=== PATIENT | male | born 2000 | race Caucasian/White ===

== ENCOUNTER 2022-11-15 07:35 | Emergency (ER) | payer OTHER, MEDICAID, SELFPAY ==
--- NOTE | ~2022-11-15 | XR_ITS ---
EXAMINATION: XR chest 2V DATE: 11/15/2022 08:23 INDICATION: Seizure. TECHNIQUE: Frontal and lateral views of the chest were obtained on 3 radiographs. COMPARISON: None. FINDINGS: The chest demonstrates clear lungs without pneumonia, pleural effusion, or pneumothorax. Th e heart size is normal. There is mild pectus excavatum. IMPRESSION: 1. No acute cardiopulmonary disease. Reviewed, dictated and finalized at location A.
--- NOTE | ~2022-11-15 | CT_ITS ---
EXAMINATION: CT brain wo con INDICATION: Seizure COMPARISON: None TECHNIQUE: Standard unenhanced head CT. The dose-length product (DLP) was 605.33 mGy-cm. The mA was a djusted according to patient size. Iterative reconstruction technique was employed. FINDINGS: There is no intracranial hemorrhage, acute infarction, or abnormal mass lesion. The ventric les are normal. There is no abnormal mass effect or midline shift. The hernandez-white matter differentiat ion is normal. The basal cisterns are patent. The orbits are normal. There is mild mucosal thickening of the paranasal sinuses. IMPRESSION: 1. No acute intracranial abnormality. Reviewed, dictated and finalized at location B.
--- NOTE | ~2022-11-15 | XR_ITS ---
EXAMINATION: XR scapula RT DATE: 11/15/2022 08:23 INDICATION: Right scapular injury. TECHNIQUE: 2 views of right scapula were obtained. COMPARISON: None. FINDINGS: Bone alignment is normal. No fracture. Joint spaces are well maintained. IMPRESSION: 1. Normal right scapula. Reviewed, dictated and finalized at location A. IMPRESSION: 1. Normal right scapula.
[2022-11-15 07:37] VITALS: BP 125/68; PULSE 74; RESP 18; TEMP 36.6; O2SAT 98
[2022-11-15 07:42] VITALS: PULSE 72
--- NOTE | 2022-11-15 07:51 | ECG_ITS ---
Measurements Intervals [place] Rate: 69 P: 37 VA: 128 QRS: 32 QRSD: 111 T: 68 QT: 387 QTc: 417 Interpretive Statements SINUS RHYTHM POSSIBLE RIGHT VENTRICULAR CONDUCTION DELAY [RSR (QR) IN V1/V2] NO PREVIOUS ECG AVAILABLE FOR COMPARISON Electronically Signed On 11-15-2022 9:46:56 CDT by Mandie Ramos M.D.
[2022-11-15 08:23] LABS: Basophils Percent Auto 0.4 % (0.2-1.2); Eosinophils Percent Auto 0.6 % (0-4.4); Hematocrit 44.3 % (42.0-52.0); Hemoglobin 14.5 g/dL (14.0-18.0); Immature Granulocyte Absolute 0.05 K/mm3 (0.00-0.031); Immature Granulocyte Percent A 0.7 % (0-0.5); Lymphocytes Absolute Auto 2.05 K/mm3 (0.9-3.2); Lymphocytes Percent Auto 28.3 % (18.3-44.2); Mean Corpuscular HGB Conc 32.7 g/dl (32-36); Mean Corpuscular Hemoglobin 32.1 pg (26-34); Mean Platelet Volume 8.8 fl (7.4-10.4); Monocytes Absolute Auto 0.5 K/mm3 (0.1-0.6); Monocytes Percent Auto 6.9 % (2.6-8.5); Neutrophils Absolute Auto 4.6 K/mm3 (1.3-6.7); Neutrophils Percent Auto 63.1 % (45.5-73.1); Platelet Count Result 239 k/mm3 (150-375); Red Blood Count 4.52 M/mm3 (4.6-6.20); Red Cell Distribution Width 11.8 % (11.5-14.5); White Blood Count 7.2 K/mm3 (4.5-10.0)
[2022-11-15 08:29] LABS: Ethanol < 10 mg/dL (<10)
[2022-11-15 08:33] LABS: Barbiturate Screen Urine Negative (Negative)
[2022-11-15 08:35] LABS: Appearance Urine Clear (Clear); Bacteria Urine None Seen /hpf; Bilirubin Urine Negative (Negative); Blood Urine Negative (Negative); Color Urine Yellow (Yellow); Glucose Urine UA Negative (Negative); Ketones Urine Trace mg/dL (Negative); Leukocyte Esterase Ur Negative LEU/UL (Negative); Need Manual Microscopic Reviewed; Nitrate Urine Negative (Negative); Non Pathogenic Casts 0-2; Protein Urine 1+ mg/dL (Negative); RBC Urine 0-2 /hpf (0-2); Specific Grav Ur 1.016 (1.001-1.035); Spermatozoa Urine Present; Squamous Epithelial Cell Urine None seen /hpf (Few); Urobilinogen Urine 0.2 mg/dL (<2.0); WBC Urine 0-5 /hpf; pH Urine 5.5 (5.0-9.0)
[2022-11-15 08:38] VITALS: BP 124/74; PULSE 70; RESP 15; O2SAT 99
[2022-11-15 08:43] LABS: Albumin Level 4.9 g/dL (3.5-5.1); Alkaline Phosphatase 50 U/L (38-126); Anion Gap 16 mmol/L (8-16); Aspartate Amino Transferase 33 U/L (17-59); Bilirubin,Total 0.7 mg/dL (0.2-1.3); Blood Urea Nitrogen 9 mg/dL (9-20); Calcium 8.9 mg/dL (8.4-10.2); Carbon Dioxide 20 mmol/L (22-30); Chloride 101 mmol/L (98-107); Estimated CRCL calculation 104 ml/min; Estimated Glomerular Filt Rate > 60; Glucose 128 mg/dL (65-110); Potassium 4.1 mmol/L (3.4-5.0); Sodium 137 mmol/L (137-145)
[2022-11-15 08:44] LABS: Add Urine Microscopic? YES
[2022-11-15 08:49] LABS: Alanine Aminotransferase 25 U/L (6-50)
[2022-11-15 08:52] LABS: Benzodiazepines Screen Urine Negative (Negative)
[2022-11-15 08:53] LABS: Amphetamine Screen Urine Negative (Negative); Cannabinoid Screen Urine Positive (Negative); Cocaine Screen Urine Negative (Negative); Methadone Screen Urine Negative (Negative); Opiate Screen Urine Negative (Negative); Phencyclidine Screen Urine Negative (Negative)
--- NOTE | 2022-11-15 09:08 | ED.SEIZURE ---
HPI - Seizure General Chief Complaint: Seizure Stated Complaint: AMS/ SEIZURE? History of Present Illness HPI Narrative: Patient is a 22-year-old male who presents ER with concerns for seizure. Family heard a crash and went down and saw him seizing. They felt he was having difficulty breathing. No previous history of seizure however he does have a brother who began having seizures in the last year. Patient has some evidence of trauma to his back. Patient has had no recent illnesses that are being reported. Related Data Home Medications Medication Instructions Recorded Confirmed No Home Medications 11/15/22 11/15/22 Allergies Allergy/AdvReac Type Severity Reaction Status Date / Time No Known Allergies Allergy Verified 11/15/22 07:54 Review of Systems Review of Systems: ROS unobtainable: Yes unobtainable due to medical condition PMFSH Past Medical History Medical History (Updated 11/15/22 @ 09:45 by Elroy Velasquez MD) Healthy adult male Surgical History Surgical History (Updated 11/15/22 @ 09:45 by Elroy Velasquez MD) No history of previous surgery Social History Social History (Updated 11/15/22 @ 09:46 by Elroy Velasquez MD) Substance use type: marijuana Exam Narrative: GENERAL: Well-appearing, well-nourished, and in no acute distress. HEAD: Normocephalic, atraumatic. EYES: PERRL and EOMI. ENT: Mucous membranes moist. NECK: Supple. CHEST: Clear to auscultation. No respiratory distress. HEART: Regular rate and rhythm. Normal peripheral pulses. ABDOMEN: Soft, nontender, nondistended. Back: No midline tenderness to the T/L-spine. There is significant bruising/abrasion to the right scapular region. There is additionally a linear abrasion/bruise to the left upper back. EXTREMITIES: Normal range of motion. No edema. SKIN: Warm, dry, no rash. NEURO: Alert and oriented x2. Clear speech. No facial droop. PSYCH: Normal mood and affect. Course Course Emergency Course: I discussed case with surgery on-call Dr. Major. No recommendation for antiepileptics at this time. Recommends outpatient follow-up with EEG. Patient educated on not driving a car until 6 months seizure-free. Patient and family verbalized understanding. We have also discussed all labs/imaging results. Vital Signs Vital signs: Vital Signs Temperature 97.8 F 11/15/22 07:37 Pulse Rate 74 11/15/22 07:37 Respiratory Rate 18 11/15/22 07:37 Blood Pressure 125/68 11/15/22 07:37 Pulse Oximetry 98 11/15/22 07:37 Oxygen Delivery Room Air 11/15/22 07:37 Temperature 97.8 F 11/15/22 07:37 Pulse Rate 70 11/15/22 08:38 Respiratory Rate 15 11/15/22 08:38 Blood Pressure 124/74 11/15/22 08:38 Pulse Oximetry 99 11/15/22 08:38 Oxygen Delivery Room Air 11/15/22 07:37 MDM - Seizure Lab Data 11/15/22 08:05 11/15/22 08:05 Labs: Lab Results 11/15/22 Range/Units 08:05 WBC 7.2 (4.5-10.0) K/mm3 RBC 4.52 L (4.6-6.20) M/mm3 Hgb 14.5 (14.0-18.0) g/dL Hct 44.3 (42.0-52.0) % MCV 98.0 (80-100) fl MCH 32.1 (26-34) pg MCHC 32.7 (32-36) g/dl RDW 11.8 (11.5-14.5) % Plt Count 239 (150-375) k/mm3 MPV 8.8 (7.4-10.4) fl Immature Gran % (Auto) 0.7 H (0-0.5) % Neut % (Auto) 63.1 (45.5-73.1) % Lymph % (Auto) 28.3 (18.3-44.2) % [place] % (Auto) 6.9 (2.6-8.5) % Eos % (Auto) 0.6 (0-4.4) % Baso % (Auto) 0.4 (0.2-1.2) % Lymph # (Auto) 2.05 (0.9-3.2) K/mm3 [place] # (Auto) 0.5 (0.1-0.6) K/mm3 Eos # (Auto) 0.0 (0-0.3) K/mm3 Baso # (Auto) 0.0 (0.0-0.1) K/mm3 Abs Immat Gran (auto) 0.05 H (0.00-0.031) K/mm3 Absolute Neuts (auto) 4.6 (1.3-6.7) K/mm3 Absolute Nucleated RBC 0.0 (0.0-0.012) K/mm3 Nucleated RBC % 0.0 (0.0-0.2) % Sodium 137 (137-145) mmol/L Potassium 4.1 (3.4-5.0) mmol/L Chloride 101 (98-107) mmol/L Carbon Dioxide 20 L (22-30) mmol/L Anion Gap 16 (8-16) mmol/L BUN 9
[2022-11-15 10:10] VITALS: BP 134/67; PULSE 73; RESP 19; O2SAT 99
== END 2022-11-15 10:11 | disposition home or self-care (01) ==
PROVIDERS: Emergency Provider Emergency Medicine
DX: R56.9 Unspecified convulsions (principal); R94.31 Abnormal electrocardiogram [ECG] [EKG]
CPT/HCPCS: 36415; 70450; 71046; 73010; 80053; 80307; 81001; 85025; 93005; 99284